=== PATIENT | female | born 1985 | race Caucasian/White ===

== ENCOUNTER 2020-01-24 04:01 | Observation (INO) | payer SELFPAY ==
[2020-01-24] VITALS (7 sets, daily range): BP systolic 87–158; BP diastolic 46–86; Ht 170.2 cm; Wt 95.0 kg
[~2020-01-24] VITALS: Ht 170.2 cm; Wt 95.0 kg
--- NOTE | 2020-01-24 04:34 | NUR ---
pt given meds per mar.Pt tolerates erll.
--- NOTE | 2020-01-24 04:35 | NUR ---
PT GIVEN MEDICATION PER MAR. PT TOLERATES WELL.
[2020-01-24 04:44] LABS: BASOPHILS 0.4 % (0-2); EOSINOPHILS 2.2 % (0-7); HEMATOCRIT 45.5 % (36.0-48.0); HEMOGLOBIN 15.4 g/dL (12-16); IMMATURE GRANULOCYTES 0.2 % (0-5); LYMPHOCYTES 36.7 % (15-50); MCH 31.5 pg (26.0-34.0); MCHC 33.8 g/dL (31.0-37.0); MEAN PLATELET VOLUME 10.5 fL (7.4-10.4); MONOCYTES 5.7 % (2-11); NEUTROPHILS 54.8 % (40-80); PLATELET COUNT 315 10x3/uL (130-400); RBC 4.89 10x6/uL (4.00-5.40); RDW 13.1 % (11.5-14.5)
--- NOTE | 2020-01-24 04:44 | NUR ---
UA SENT TO LAB.
[2020-01-24 04:56] LABS: CALC OSMOLALITY 278 mosm/kg (275-300); CALCIUM 9.3 mg/dL (8.5-10.1); CARBON DIOXIDE 26.9 mmol/L (21.0-32.0); CHLORIDE - SERUM 105 mmol/L (98-107); CREATININE - SERUM 1.2 mg/dL (0.6-1.3); GLUCOSE 110 mg/dL (74-106); POTASSIUM - SERUM 3.9 mmol/L (3.5-5.1); SODIUM 139 mmol/L (136-145); UREA NITROGEN 13 mg/dL (7-18); eGFR NON AFRICAN AMERICAN 55 mL/min (90-120)
[2020-01-24 05:03] LABS: ALKALINE PHOSPHATASE 80 U/L (30-120); ALT (SGPT) 26 U/L (10-68); AMYLASE - SERUM 36 U/L (25-115); BILIRUBIN - TOTAL 0.15 mg/dL (0.2-1.3); LIPASE 128 U/L (73-393); PROTEIN - SERUM 7.7 g/dL (6.4-8.2); TROPONIN-I < 0.017 ng/mL (0.000-0.060)
[2020-01-24 05:21] LABS: BILIRUBIN NEGATIVE (NEGATIVE); KETONE NEGATIVE (NEGATIVE); NITRITE NEGATIVE (NEGATIVE); UROBILINOGEN NORMAL (NORMAL)
[2020-01-24 05:22] LABS: WHITE CELLS - URINE 0-5 /hpf (0-5)
[2020-01-24 05:23] LABS: BACTERIA FEW /hpf (NONE SEEN); EPITHELIAL CELLS 0-5 /hpf (0-5); RED CELLS - URINE 0-5 /hpf (0-5)
--- NOTE | 2020-01-24 06:00 | NUR ---
PT TO CT SCAN.
--- NOTE | 2020-01-24 06:15 | NUR ---
PT RETURNS FROM CT.
[2020-01-24 06:57] LABS: HCG SERUM NEGATIVE (NEGATIVE)
--- NOTE | 2020-01-24 08:26 | NUR ---
PT. REFUSED COVID NASAL SWAB
--- NOTE | 2020-01-24 10:00 | NUR ---
LATE ENTRY pATIENT IS REFUSING HER COVID SCREENING PRIOR TO ADMISSION. MULTIPLE DISCUSSIONS BY PROVIDER, NURSE AND MYSELF ON REASONS TO OBTAIN IT FOR SAFETY OF HER AND STAFF. PT STILL REFUSES STATES DOES NOT WANT HER NAME ON A GOVERNMENT LIST NOR TO BE SENT TO [facility] AND PUT OFF WORK IF SHE WAS POSITICVE. SHE DENIES ANY S/S OF COVID. MD AWARE, IC, OR ALL MADE AWARE OF REFUSAL.
--- NOTE | 2020-01-24 13:21 | NUR ---
SPOKE TO DR GO, STATES HE DOES NOT FEEL SHE WILL NEED TO BE ADMITTED POST SURGERY. MADE HS AWARE AND PATIENT AWARE. STATE POSSIBLY 1 HOUR WAIT TO GO TO SURGERY AT THIS POINT. PT UPDATED. ADMIT ORDER TO BE CANCELLED.
[2020-01-24] MEDS ORDERED: HYDROCODON-ACE1 EA10 PO (16:02)
--- NOTE | 2020-01-24 16:59 | NUR ---
1700 MAIN C/O IS NAUSES, S/P ZOFRAN 8 MG IV. 5 MG PHENEGAN IV GIVEN. PT TOLERATED WELL
--- NOTE | 2020-01-24 18:28 | NUR ---
1800 DENIES NAUSEA. PAIN IS MANAGED 09/28. IV D/C'D WITH CANNULA INTACT. DISCHARGE INSTRUCTIONS GIVEN. DISCHARGED HOME IN STABLE CONDITION
--- NOTE | 2020-01-26 10:50 | OP ---
PATIENT NAME: ED TRAVIS MEDICAL RECORD: [id number] :87 LOCATION:[facility]- ADMISSION DATE:01/24/20 SURGEON: ELLIE GO MD DATE OF OPERATION: 01/24/2020 PREOPERATIVE DIAGNOSIS: Acute cholecystitis with cholelithiasis. POSTOPERATIVE DIAGNOSIS: Acute cholecystitis with cholelithiasis. PROCEDURE: Laparoscopic cholecystectomy. SURGEON: Ellie Go MD REPORT OF PROCEDURE: The patient's abdomen was prepped and draped in sterile fashion. A cutdown was made on the superior aspect of the umbilicus, 0 Vicryls were placed in the fascia bilaterally and the fascia was incised with 15-blade. I then bluntly entered the peritoneal cavity and placed a 12-mm Bradley port. Under direct visualization, a 5 mm trocar was placed in the epigastrium and 2 more 5-mm trocars were placed in the right subcostal region. The gallbladder was grasped and elevated. The cystic artery and cystic duct were dissected free and they were clipped proximally and distally. The gallbladder was then peeled off of the liver bed using electrocautery and there was noted to be some inflammatory changes and edema to the gallbladder wall. The gallbladder was placed in the right upper quadrant. Any bleeding from the liver bed was treated with electrocautery. We irrigated out the right upper quadrant and assured there was no sign of any bleeding or bile leakage. At this point, the ports and insufflation were then removed and the gallbladder was taken out through the umbilicus. There was noted to be a large stone present within the gallbladder. The umbilical fascia was closed with interrupted 0 Vicryls times 3. The wounds were irrigated out with normal saline and infused with 10 mL of 0.25% Marcaine with epinephrine. The skin incisions were all closed with subcutaneous 5-0 Monocryl and dressed appropriately. COMPLICATIONS: None. CONDITION: Stable. ANESTHESIA: General endotracheal and local. BLOOD LOSS: Minimal. TRANSINT:[id number] Voice Confirmation ID: [id number] DOCUMENT ID: [id number] ELLIE GO MD at 1050 CC: [id number] DICTATION DATE: 01/24/20 1602 AWNING INSTALLER: 01/24/20 2309 DIS IN 01/24/20 [facility] [address] [place] [address]
== END 2020-01-24 18:28 | disposition home or self-care (01) ==
LOC: D.ER 04:01 → D.MS 08:00 → D.EDHOLD 08:00 → OBSVTIME 08:00 → D.EDHOLD 08:01 → D.SDCHOLD 13:19
PROVIDERS: Family Medicine; ADMIT Surgery; ATTEND Surgery
DX: K80.00 Calculus of gallbladder with acute cholecystitis without obstruction (principal); R10.11 Right upper quadrant pain

== ENCOUNTER 2020-08-04 08:32 | Outpatient (CLI) | payer MEDICAID ==
[2020-01-24 10:01] VITALS: BMI 32.8
[~2020-08-04 08:32] MED LIST: HYDROCODON-ACE1 EA10 PO
== END 2020-08-04 23:59 | disposition home or self-care (01) ==
LOC: D.MAMMO 08:32
PROVIDERS: ATTEND Nurse Practitioner Obstetrics & Gynecology
DX: N63.12 Unspecified lump in the right breast, upper inner quadrant (principal)